=== PATIENT | male | born 1995 | race Two or more races ===

== ENCOUNTER 2025-06-05 12:38 | Outpatient (CLI) | payer OTHER | END 2025-06-05 12:39 | disposition home or self-care (01) | LOC: SCSMRI 12:38 | PROVIDERS: ATTEND Family Medicine | DX: S43.101D Unspecified dislocation of right acromioclavicular joint, subsequent encounter (principal); M75.111 Incomplete rotator cuff tear or rupture of right shoulder, not specified as traumatic; S42.001A Fracture of unspecified part of right clavicle, initial encounter for closed fracture ==